=== PATIENT | male | born 1950 | race Caucasian/White ===

== ENCOUNTER 2016-11-18 06:46 | Day surgery (SDC) | payer BC ==
[2016-11-13 08:30] LABS: BASOPHILS 0.3 %; BASOPHILS ABSOLUTE 0.01 10/3/uL (0.0-0.16); EOSINOPHILS 5.3 %; EOSINOPHILS ABSOLUTE 0.21 10/3/uL (0.0-0.53); HEMATOCRIT 42.5 % (40.0-51.0); HEMOGLOBIN 14.6 g/dL (13.6-17.8); IMMATURE GRANULOCYTES 0.3 %; IMMATURE GRANULOCYTES ABSOLUTE 0.01 10/3/uL (0.0-0.11); LYMPHOCYTES ABSOLUTE 0.99 10/3/uL (0.67-4.30); MANUAL DIFF NO %; MEAN CORPUS HGB CONC 34.4 g/dL (32.0-36.0); MEAN CORPUSCULAR HEMOGLOB 30.1 pg (26.0-34.0); MEAN CORPUSCULAR VOLUME 87.6 fL (80-100); MEAN PLATELET VOLUME 10.7 fL (9.2-13.0); MONOCYTES 6.8 %; MONOCYTES ABSOLUTE 0.27 10/3/uL (0.21-1.20); NEUTROPHILS 62.3 %; NEUTROPHILS ABSOLUTE 2.47 10/3/uL (2.02-8.40); PLATELET COUNT 250 10/3/uL (150-400); RBC DISTRIBUTION WIDTH 13.3 % (12.0-16.0); RED CELL COUNT 4.85 10/6/uL (4.7-6.1)
[2016-11-13 08:38] LABS: BUN (BLOOD UREA NITROGEN) 19 MG/DL (6-23); CALCIUM, SERUM 8.9 MG/DL (8.5-10.4); CHLORIDE, SERUM 107 MMOL/L (96-112); CO2 (CARBON DIOXIDE) 27 MMOL/L (24-34); CREATININE 1.08 MG/DL (0.70-1.30); GFR AFRICAN AMERICAN 84 ML/MIN (>=60); GFR NON AFRICAN AMERICAN 72 ML/MIN (>=60); POTASSIUM, SERUM 3.8 MMOL/L (3.5-5.3); SODIUM, SERUM 140 MMOL/L (135-148)
[2016-11-13 08:39] LABS: GLUCOSE, SERUM 174 MG/DL (60-99)
[2016-11-13 09:05] LABS: PFA (COL/EPI) 95 SEC (72-180)
[2016-11-13 10:10] LABS: ASCORBIC ACID (UR NOT ORDER) 40 (NEG); BILIRUBIN, URINE NEGATIVE (NEG); KETONE, URINE NEGATIVE (NEG); LEUKOCYTE ESTERASE(NOT OR TRACE (NEG); WBC (NOT ORDERED) (RFLEX) 9 (0-5)
--- NOTE | ~2016-11-18 | OP ---
Record Of Operation [facility] [address] [place]. [address] NAME: HANNY LO : 54 STATUS : REG [facility]#: [id number] AGE: 66 ADM/REG DATE : 11/18/16 MR#: [id number] REPORT SERV DATE: 11/18/16 DICTATED BY: WILLIAM HAGEN DATE: 11/18/16 REPORT STATUS : Draft TRANSCRIBED BY: CHIKA DATE: 11/18/16 DATE OF PROCEDURE: 11/18/2016 PREOPERATIVE DIAGNOSIS: Calculus, right kidney. POSTOPERATIVE DIAGNOSIS: Calculus, right kidney. OPERATIVE PROCEDURE: Right extracorporeal shock wave lithotripsy. ANESTHESIA: Monitored anesthesia care (MAC). ESTIMATED BLOOD LOSS: None. COMPLICATIONS: None. IMMEDIATE POSTOP: Satisfactory. DESCRIPTION OF PROCEDURE: The patient was brought into the lithotripsy suite and placed on the table with Dornier compact Delta II Lithotripter. Stone was then aligned on mobile C- arm fluoroscopy for lithotripsy. The patient was then coupled to the machine. The stone was then treated to 2500 shocks at 4.0 power level max. The patient tolerated the procedure well. Closed the procedure. He was awakened, removed from the mobile lithotripter, and lithotripsy suite, returned to phase 2 recovery for post lithotripsy care. There were no complications. /CHIKA William Hagen M.D. / [id number] CC: Asa Greene M.D.
[~2016-11-18 06:46] MED LIST: ASAB PO; BREO ELLIPTA INH; CIP5 PO; CLARINEX5 MG PO; CPZ25 PO; CYANO1000T PO; DIL2TAB PO; EYE GTTS; FLOMAX4 PO; FLONASE NAS; FOLIC ACID800 MCG PO; GLUCPH PO; HALF81 PO; HYDROCHLOROT12.5 MG PO; MOBIC15 MG PO; MTX2.5 PO; MUCINEX1200 MG PO; NORCO1 TA1 PO; OLOPATADINE OPH; OMNICEF300 PO; OTEZLA30 MG PO; PATADAY OPH; PREDFORTE; PRESERVISION A1 EAC1 PO; PRIN10 PO; PYR200 PO; TACLONEX EX; TREXALL15 MG PO; TRIAMCINOLONE TOP; VITD PO; ZESTRIL10 MG PO; ZOFRAN4 PO; ZYRTEC ALLGY10 MG PO
== END 2016-11-18 14:18 | disposition home or self-care (01) ==
LOC: SDC 06:46
PROVIDERS: Urology
PROC: 0TF3XZZ Fragmentation in Right Kidney Pelvis, External Approach (ICD-10-PCS; principal; 2016-11-18 09:00)
DX: N20.0 Calculus of kidney (principal); I10 Essential (primary) hypertension; J45.909 Unspecified asthma, uncomplicated; E11.9 Type 2 diabetes mellitus without complications; Z87.891 Personal history of nicotine dependence; Z88.5 Allergy status to narcotic agent; Z79.82 Long term (current) use of aspirin; Z79.51 Long term (current) use of inhaled steroids; Z79.84 Long term (current) use of oral hypoglycemic drugs; Z79.899 Other long term (current) drug therapy
CPT/HCPCS: 50590; 74000; 80048; 81001; 82962; 85025; 85576; 93005